=== PATIENT | male | born 1975 | race Caucasian/White ===

== ENCOUNTER 2023-11-13 22:22 | Emergency (ER) | payer OTHER, SELFPAY ==
[2023-11-13 22:25] VITALS: BP 153/98
--- NOTE | 2023-11-13 22:50 | ED.GENMED ---
History of Present Illness
<Brittney Brantley MD, Resident - Last Filed: 11/13/23 23:01>
General
Chief Complaint: Fever
Time Seen by Provider: 11/13/23 22:31
History of Present Illness
History of Present Illness:
47-year-old male with no past significant history presented to the ED with fever, chills, night sweats, fatigue that started on Saturday 11/11. Patient states that he has some mild headache and he has been taking ibuprofen 600 mg for fever. Today he
went to bed at around 8:30 PM and his last dose of Tylenol was around 7 PM today. Patient states that he woke up a drenched in sweat and he felt that his heart was racing, this prompted him to come to the ED today. Patient admits to having a sick
contact which was his daughter who was infected with strep throat. Patient denies chest pain, shortness of breath, abdominal pain, bowel or bladder difficulties. Home COVID test was negative.
Past History
<Brittney Brantley MD, Resident - Last Filed: 11/13/23 23:01>
Social History
Tobacco: Non-smoker
Phy Exam
<Brittney Brantley MD, Resident - Last Filed: 11/13/23 23:01>
General Physical Exam
General Presentation: well appearing
ENT Exam
ENT Exam: EOMI, TM's normal and pharynx normal
Additional ENT: no tonsillar exudate
Eye Exam
Eye Exam: PERRL
Cardiovascular Exam
Cardiovascular Exam: regular rate/rhythm
Pulmonary Exam
Pulmonary Exam: lungs clear
Gastrointestinal Exam
Gastrointestinal Exam: normal bowel sounds, non tender, soft and non distended
Neurological Exam
Neurological Exam: alert and oriented x3
Course
<Brittney Brantley MD, Resident - Last Filed: 11/13/23 23:01>
Orders/Labs/Results
Orders:
Orders
11/13/23 22:47
Complete Blood Count/With Diff Urgent
Comprehensive Metabolic Panel Urgent
Rapid Strep Group A Urgent
DOV Source: Throat/Pharynx
Specimen Description:
Date Specimen was Collected: 11/13/23
Time Specimen was Collected: 22:44
11/13/23 22:48
COVID-19 Antigen Urgent
Source: Nasal Swab
11/13/23 22:51
Acetaminophen [Tylenol] 650 mg PO NOW STA
11/13/23 22:58
0.9% Sodium Chloride 500 ml [Nss] 500 ml IV BOLUS
11/13/23 23:02
Influenza A+B Rapid Molecular Urgent
DOV Source: Nasal Swab
Specimen Description:
Abnormal Lab Results
11/13/23
22:47
WBC 11.6 H 10^3/uL
(4.8-10.8)
RBC 4.46 L 10^6/uL
(4.70-6.10)
MCH 32.1 H pg
(27.0-31.0)
MPV 11.1 H fL
(7.4-10.4)
Absolute Neuts (auto) 8.1 H 10^3/uL
(1.4-6.5)
Absolute Monos (auto) 1.6 H 10^3/uL
(0.1-0.6)
Lymphocytes % 15.2 L %
(20.5-51.1)
Monocytes % 13.4 H %
(1.7-9.3)
Glucose 121 H mg/dl
(70-99)
11/13/23 22:47
11/13/23 22:47
Vital Signs
Initial and Last Documented VS:
Initial Vital Signs
Temp Pulse Resp BP Pulse Ox
102.3 F H 114 20 153/98 96
11/13/23 22:25 11/13/23 22:25 11/13/23 22:25 11/13/23 22:25 11/13/23 22:25
Last Documented Vital Signs
Temp Pulse Resp BP Pulse Ox
98.6 F 89 20 152/90 98
11/14/23 00:00 11/14/23 00:00 11/14/23 00:00 11/14/23 00:02 11/14/23 00:03
<Handy Beth, - Last Filed: 11/14/23 00:29>
Orders/Labs/Results
Orders:
Orders
11/13/23 22:47
Complete Blood Count/With Diff Urgent
Comprehensive Metabolic Panel Urgent
Rapid Strep Group A Urgent
DOV Source: Throat/Pharynx
Specimen Description:
Date Specimen was Collected: 11/13/23
Time Specimen was Collected: 22:44
11/13/23 22:48
COVID-19 Antigen Urgent
Source: Nasal Swab
11/13/23 22:51
Acetaminophen [Tylenol] 650 mg PO NOW STA
11/13/23 22:58
0.9% Sodium Chloride 500 ml [Nss] 500 ml IV BOLUS
11/13/23 23:02
Influenza A+B Rapid Molecular Urgent
DOV Source: Nasal Swab
Specimen Description:
Abnormal Lab Results
11/13/23
22:47
WBC 11.6 H 10^3/uL
(4.8-10.8)
RBC 4.46 L 10^6/uL
(4.70-6.10)
MCH 32.1 H pg
(27.0-31.0)
MPV 11.1 H fL
(7.4-10.4)
Absolute Neuts (auto) 8.1 H 10^3/uL
(1.4-6.5)
Absolute Monos (auto) 1.6 H 10^3/uL
(0.1-0.6)
Lymphocytes % 15.2 L %
(20.5-51.1)
Monocytes % 13.4 H %
(1.7-9.3)
Glucose 121 H mg/dl
(70-99)
11/13/23 22:47
11/13/23 22:47
Vital Signs
Initial and Last Documented VS:
Initial Vital Signs
Temp Pulse Resp BP Pulse Ox
102.3 F H 114 20 153/98 96
11/13/23 22:25 11/13/23 22:25 11/13/23 22:25 11/13/23 22:25 11/13/23 22:25
Last Documented Vital Signs
Temp Pulse Resp BP Pulse Ox
98.6 F 89 20 152/90 98
11/14/23 00:00 11/14/23 00:00 11/14/23 00:00 11/14/23 00:02 11/14/23 00:03
<DO Shirley Tran Last Filed: 11/14/23 00:29>
MDM/Problems Addressed
Differential Diagnosis Includes:
Viral syndrome, pneumonia, UTI, intra-abdominal process, meningitis
MDM/Problems Addressed:
Fever, viral syndrome
<DO Shirley Tran Last Filed: 11/14/23 00:29>
*Pulse Oximetry
Patient hypoxic: no
*Critical Care Note
Total Time (30-74mins, 75-104mins- exclusive of procedures): Not Applicable
Data Reviewed
Source: patient and family
Further Testing Considered But Not Given:
Consider blood cultures but suspect viral syndrome
<DO Shirley Tran Last Filed: 11/14/23 00:29>
Patient Management
Escalation/DeEscalation of care consider admission/obs:
Labs grossly unremarkable. Patient appears well. Feels a bit better. CBC supports viral etiology. Okay for discharge and outpatient follow-up
<Brittney Brantley MD, Resident - Last Filed: 11/13/23 23:01>
Update Note
Update Note:
47-year-old male presented to the ED with fever, chills, night sweats, palpitations. We will check for COVID, flu, strep. He has had 1 sick contact with strep which was discharged with strep throat. Would also start him on IV fluids. Also gave
him Tylenol for fever
ED Attending Note
<Brittney Brantley MD, Resident - Last Filed: 11/13/23 23:01>
-
Portions of this chart may have been created with voice recognition software.� Occasional wrong word or��sound alike� substitutions may have occurred due to the inherent limitations of voice recognition software.
<Handy Beth, - Last Filed: 11/14/23 00:29>
ED Attending Note
Patient seen and examined by attending physician: Yes
I performed a history and physical exam of patient and discussed management with resident, I reviewed resident's note and agree with documented findings and plan of care.: Yes
ED Attending Note:
47-year-old otherwise healthy male who presents with a fever since . He really denies any specific symptoms other than fevers and chills. Tonight he felt his heart was racing. Patient denies specifically nasal congestion, sore throat,
abdominal pain, chest pain, shortness of breath, dysuria, rash, back pain, neck stiffness or neck pain. Patient states that he has not seen a primary care doctor in some years but otherwise has been healthy. His daughter did have strep throat
about 10 days ago. exam: awake and alert. ENT nl. no rash. abd benign. no cva TTP. no meningismus. Assessment and plan: Check COVID, flu, rapid strep. Reassess. Fever control, IV fluids
Discharge Plan
Departure
Patient Disposition: Home (Routine Discharge)
Date of Disposition: 11/14/23
Time of Disposition: 00:27
Patient with high blood pressure during this ER visit?: Yes
Discharge Problem:
Fever, Acute viral syndrome
Instructions: Fever, Adult (DC), Viral Syndrome (DC), BLOOD PRESSURE
Prescriptions:
No Action
cephalexin 500 MG capsule
500 mg PO QID Qty: 40 0RF
Referrals:
UNKNOWN - PT DOES,NOT KNOW [Family Provider] -
Activity Restrictions/Additional Instructions:
Drink plenty fluids. Use Tylenol and ibuprofen for fever control. Return immediately for abdominal pain, intractable vomiting, difficulty breathing, cough or any other concerns. Please see your doctor in the next 1 week for follow-up and
reevaluation
Interventions
Interventions:
*Risk Screen - Suicide Last Done: 11/13/23 22:25
*General Assessment Last Done: 11/13/23 22:25
*Neglect/Abuse Screening Last Done: 11/13/23 22:25
ED- Fall Risk Assessment Last Done: 11/13/23 22:25
*ED COVID-19 Vaccine History Last Done: 11/13/23 22:25
ED- Neurological Assessment Last Done: 11/13/23 23:09
ED-Skin Assessment Last Done: 11/13/23 23:09
Discharge Date and Time
Print Language: [id number]
[2023-11-13] MEDS: NSS 500 IV (23:03)
[2023-11-13] MEDS: TYLENOL 650 MG PO (23:05)
[2023-11-13 23:22] LABS: COVID-19 Antigen Negative (Negative)
[2023-11-14] VITALS: BP 152/90
[2023-11-14 00:01] LABS: % Basophils 0.5 % (0-2); % Eosinophils 0.4 % (0-6); % Immature Granulocytes 0.3 % (0-0.5); % Lymphocytes 15.2 % (20.5-51.1); % Monocytes 13.4 % (1.7-9.3); % Neutrophils 70.2 % (42.2-75.2); Absolute Basophils 0.1 10^3/uL (0-0.2); Absolute Eosinophils 0.1 10^3/uL (0-0.7); Absolute Lymphocytes 1.8 10^3/uL (1.2-3.4); Absolute Monocytes 1.6 10^3/uL (0.1-0.6); Absolute Neutrophils 8.1 10^3/uL (1.4-6.5); Hematocrit 39.1 % (39.0-52.0); Hemoglobin 14.3 g/dL (13.0-18.0); Mean Corp Hgb Conc. 36.6 g/dL (33.0-37.0); Mean Corpuscular Hgb 32.1 pg (27.0-31.0); Mean Corpuscular Volume 87.7 fL (80.0-94.0); Mean Platelet Volume 11.1 fL (7.4-10.4); Nucleated Red Blood Cells % 0 % (-); Platelet Count 222 10^3/uL (130-400); Red Blood Cell Count 4.46 10^6/uL (4.70-6.10); Red Cell Dist. Width 13.1 % (11.5-14.5); White Blood Cell Count 11.6 10^3/uL (4.8-10.8)
[2023-11-14 00:02] VITALS: BP 152/90
[2023-11-14 00:09] LABS: ALT (SGPT) 25 U/L (0-50); AST (SGOT) 29 U/L (17-59); Albumin 4.1 g/dl (3.5-5.0); Alkaline Phosphatase 71 U/L (38-126); Blood Urea Nitrogen 18 mg/dl (9-20); Carbon Dioxide 25 mmol/L (22-30); Chloride 105 mmol/L (98-107); Glucose 121 mg/dl (70-99); Potassium 3.8 mmol/L (3.5-5.1); Sodium 137 mmol/L (135-145); Total Bilirubin 0.7 mg/dl (0.2-1.3); Total Protein 6.7 g/dl (6.3-8.2); eGFR > 60.00
== END 2023-11-14 00:42 | disposition home or self-care (01) ==
LOC: EMR 22:22
PROVIDERS: Student in an Organized Health Care Education/Training Program; EMERGENCY PHYSICIAN Emergency Medicine
DX: B34.9 Viral infection, unspecified (principal); R50.9 Fever, unspecified; Z11.52 Encounter for screening for COVID-19; R03.0 Elevated blood-pressure reading, without diagnosis of hypertension
CPT/HCPCS: 99284; 96360; 80053; 85025; 87070; 87502; 87811; 87880

== ENCOUNTER 2023-11-14 18:04 | Emergency (ER) | payer OTHER, SELFPAY ==
[2023-11-14 18:08] VITALS: BP 139/86
--- NOTE | 2023-11-14 19:30 | ED.GENMED ---
History of Present Illness
General
Chief Complaint: Fever
Source: patient
Exam Limitations: none
Time Seen by Provider: 11/14/23 19:17
History of Present Illness
History of Present Illness:
This is a 47 year old male that comes in with c/o fever. States that he was here yesterday and told that this was a viral illness. States that he was alternating with Tylenol and Ibuprofen but his fever still went up and he couldn't get it down. .
State that this started on night. States that he now has a cough and felt slightly SOB. States that he had chills with the fever, headache and lightheaded when he stool up. States that he took Ibuprofen 800mg at 4:30pm and Tylenol 1000mg
at 12:30. Denies any chest pain, abd pain, nausea, vomiting, diarrhea, dizziness, or urinary burning.
Past History
Past History
ED Past Medical History: None; Negative Asthma, HTN, Hypercholesterolemia or NIDDM
ED Past Surgical History: None
Social History
Tobacco: Non-smoker
Alcohol: Occasional
Personal:
Living: with family
Review of Systems
Review of Systems
All Other Systems: ROS reviewed and negative except as documented in HPI and ROS
Constitutional: Reports fever and chills
EENT: Reports no symptoms
Respiratory: Reports cough and trouble breathing
Cardiac: Denies chest pain
ABD/GI: Reports no symptoms; Denies abdominal pain, nausea, vomiting or diarrhea
: Reports no symptoms; Denies dysuria, frequency or urgency
Musculoskeletal: Reports no symptoms
Skin: Reports no symptoms
Neurological: Reports headache and other (Lightheaded when he stands up); Denies dizzy
Psychiatric: Reports no symptoms
Phy Exam
General Physical Exam
General Presentation: no apparent distress
General age: appears stated age
General Skin: warm and dry
General Habitus: normal
General Mental: alert
General Hydration: appears well hydrated
ENT Exam
ENT Exam: TM's normal, pharynx normal and neck supple
Eye Exam
Eye Exam: EOMI
Cardiovascular Exam
Cardiovascular Exam: regular rate/rhythm, no edema, no murmur and normal peripheral pulses
Pulmonary Exam
Pulmonary Exam: no respiratory distress, chest non tender, no rhonchi, no wheezing and other (Crackles left base. , Cry cough noted)
Gastrointestinal Exam
Gastrointestinal Exam: normal bowel sounds, non tender, soft, no organomegaly, no pulsatile mass and non distended
Musculoskeletal Exam
Musculoskeletal Exam: full ROM and no edema
Skin Exam
Skin Exam: normal color, warm/dry, no rash and no petechia
Psychiatric Exam
Psychiatric Exam: normal mood/affect
Course
Orders/Labs/Results
Orders:
Orders
11/14/23 19:29
0.9% Sodium Chloride 1000 ml [Nss] 1,000 ml IV BOLUS
Acetaminophen [Tylenol] 1,000 mg PO NOW STA
CR Chest - 2 Views Urgent
Comment:
Reason For Exam: Fever, cough
11/14/23 19:39
Complete Blood Count/With Diff Urgent
Comprehensive Metabolic Panel Urgent
Lactic Acid Urgent
Abnormal Lab Results
11/14/23
19:39
WBC 11.6 H 10^3/uL
(4.8-10.8)
RBC 4.30 L 10^6/uL
(4.70-6.10)
Hct 37.8 L %
(39.0-52.0)
MCH 31.9 H pg
(27.0-31.0)
Absolute Neuts (auto) 8.8 H 10^3/uL
(1.4-6.5)
Absolute Monos (auto) 1.1 H 10^3/uL
(0.1-0.6)
Neutrophils % 75.3 H %
(42.2-75.2)
Lymphocytes % 14.2 L %
(20.5-51.1)
Sodium 134 L mmol/L
(135-145)
Glucose 109 H mg/dl
(70-99)
11/14/23 19:39
11/14/23 19:39
Leukocytosis, Glucose nonfasting. Lactic acid normal at 0.8
Vital Signs
Initial and Last Documented VS:
Initial Vital Signs
Temp Pulse Resp BP Pulse Ox
100.8 F H 102 16 139/86 96
11/14/23 18:08 11/14/23 18:08 11/14/23 18:08 11/14/23 18:08 11/14/23 18:08
Last Documented Vital Signs
Temp Pulse Resp BP Pulse Ox
100.8 F H 96 18 136/72 96
11/14/23 18:08 11/14/23 19:56 11/14/23 19:56 11/14/23 19:56 11/14/23 19:56
MDM/Problems Addressed
Differential Diagnosis Includes:
Viral syndrome. PNA
MDM/Problems Addressed:
This is a 47 year old male that was seen here last night and told that he has a viral illness. Patient returns tonight as he said he was unable to get his fever down. States that he has been taking TYlenol and IBuprofen.
Will check labs, Lactic and get chest x-ray.
back into see patient. Explained that he has a left lower lobe Pneumonia. Will start on antibiotics. Encouraged patient to increase his water intake to 8-8oz glasses daily. Continue with Tylenol and alternating with Ibuprofen for fever. Follow up
with the family doctor. Explained that it was suggested that he had a Repeat Chest after treatment completed. Patient to return with increased SOB or worsening fever.
Chronic conditions affecting care:
NA
Acute Exacerbation and/or Progression of Chronic Illness:
NA
*Radiology
Radiology exam reviewed: radiology read reviewed (Chest-left lower Lobe Pneumonia. No evidence for associated pleural effusion. Advise radiographic follow-up to assess for resolution of presumed pneumonia. )
*Pulse Oximetry
Patient hypoxic: no
*EKG
Interpreted by ED Provider?: NA
Rate: EKG- N/A
*Customer Solutions Coordinator Interpretation
Rate: Customer Solutions Coordinator- N/A
*Critical Care Note
Total Time (30-74mins, 75-104mins- exclusive of procedures): Not Applicable
ED Attending Note
-
Portions of this chart may have been created with voice recognition software.� Occasional wrong word or��sound alike� substitutions may have occurred due to the inherent limitations of voice recognition software.
Discharge Plan
Departure
Patient Disposition: Home (Routine Discharge)
Date of Disposition: 11/14/23
Time of Disposition: 20:28
Patient with high blood pressure during this ER visit?: Yes
Condition: Good
Covid-19: Not Applicable
Discharge Problem:
Left lower lobe pneumonia
Instructions: Pneumonia, Adult (DC), BLOOD PRESSURE
Prescriptions:
New
doxycycline hyclate 100 mg capsule
100 mg PO BID Qty: 19 0RF
No Action
cephalexin 500 MG capsule
500 mg PO QID Qty: 40 0RF
Referrals:
NONE,* [Family Provider] -
Activity Restrictions/Additional Instructions:
As discussed, your blood work shows that your WBC are very slightly elevated. Your lactic acid is normal. You do have a left lower Lobe Pneumonia. You have been started on an antibiotic and give a prescription for the next 10 days. Please take as
directed. Please increase your water intake to 8-8oz glasses daily. Continue with the Tylenol 1000mg every 6 hours for fever. If you can stop the Ibuprofen it would be best as this elevated your blood pressure and is hard on the kidneys. Follow up
with the family doctor for repeat Chest after you have completed your treatment. IF YOU HAVE INCREASED SHORTNESS OF BREATH, FEVER THAT IS WORSENING OR YOU HAVE ANY OTHER CONCERNS PLEASE RETURN TO THE EMERGENCY ROOM.
Interventions
Interventions:
*Risk Screen - Suicide Last Done: 11/14/23 19:19
*General Assessment Last Done: 11/14/23 19:19
*Neglect/Abuse Screening Last Done: 11/14/23 19:19
ED- Fall Risk Assessment Last Done: 11/14/23 19:19
ED- Neurological Assessment Last Done: 11/14/23 19:19
ED-Skin Assessment Last Done: 11/14/23 19:19
Discharge Date and Time
Print Language: [id number]
[2023-11-14] MEDS: NSS 1000 IV (19:41)
[2023-11-14] MEDS: TYLENOL 1000 MG PO (19:42)
[2023-11-14 19:56] VITALS: BP 136/72
[2023-11-14 19:58] LABS: % Basophils 0.6 % (0-2); % Eosinophils 0.3 % (0-6); % Immature Granulocytes 0.3 % (0-0.5); % Lymphocytes 14.2 % (20.5-51.1); % Monocytes 9.3 % (1.7-9.3); % Neutrophils 75.3 % (42.2-75.2); Absolute Basophils 0.1 10^3/uL (0-0.2); Absolute Lymphocytes 1.7 10^3/uL (1.2-3.4); Absolute Monocytes 1.1 10^3/uL (0.1-0.6); Absolute Neutrophils 8.8 10^3/uL (1.4-6.5); Hematocrit 37.8 % (39.0-52.0); Hemoglobin 13.7 g/dL (13.0-18.0); Mean Corp Hgb Conc. 36.2 g/dL (33.0-37.0); Mean Corpuscular Hgb 31.9 pg (27.0-31.0); Mean Corpuscular Volume 87.9 fL (80.0-94.0); Mean Platelet Volume 10.4 fL (7.4-10.4); Nucleated Red Blood Cells % 0 % (-); Platelet Count 211 10^3/uL (130-400); Red Cell Dist. Width 13.2 % (11.5-14.5); White Blood Cell Count 11.6 10^3/uL (4.8-10.8)
[2023-11-14 20:10] LABS: Lactic Acid 0.8 mmol/L (0.7-2.0)
[2023-11-14 20:21] LABS: ALT (SGPT) 29 U/L (0-50); AST (SGOT) 31 U/L (17-59); Albumin 3.8 g/dl (3.5-5.0); Alkaline Phosphatase 72 U/L (38-126); Blood Urea Nitrogen 14 mg/dl (9-20); Carbon Dioxide 25 mmol/L (22-30); Chloride 104 mmol/L (98-107); Glucose 109 mg/dl (70-99); Potassium 3.9 mmol/L (3.5-5.1); Sodium 134 mmol/L (135-145); Total Bilirubin 0.8 mg/dl (0.2-1.3); Total Protein 6.4 g/dl (6.3-8.2); eGFR > 60.00
[2023-11-14] MEDS: VIBRAMYCIN 100 MG PO (20:48)
[2023-11-14 20:52] VITALS: BP 131/73
== END 2023-11-14 22:07 | disposition home or self-care (01) ==
LOC: EMR 18:04
PROVIDERS: Clinical Nurse Specialist Family Health; EMERGENCY PHYSICIAN Emergency Medicine
DX: J18.9 Pneumonia, unspecified organism (principal)
CPT/HCPCS: 99283; 96360; 71046; 80053; 83605; 85025

== ENCOUNTER → 2023-12-01 08:18 | Outpatient (REF) | payer OTHER, SELFPAY | LOC: RAD 08:18 | PROVIDERS: ATTENDING PHYSICIAN Family Medicine | DX: J18.9 Pneumonia, unspecified organism (principal) | CPT/HCPCS: 71046 ==